=== PATIENT | male | born 1965 | race Caucasian/White ===

== ENCOUNTER 2016-05-09 07:09 | Inpatient (IN) | payer MEDICAID ==
[~2016-05-09] VITALS: Ht 172.7 cm; Wt 64.0 kg
[2016-05-09] MEDS ORDERED: KETOROLAC 30 MG/ML VIAL ONE (07:35)
[2016-05-09] MEDS ORDERED: SODIUM CHLORIDE 0.9% 100 ML IV ONE (08:40)
[2016-05-09] MEDS ORDERED: CEFTRIAXONE 1 GM VIAL ONE (08:40)
[2016-05-09] MEDS ORDERED: SODIUM CHLORIDE 0.9% 1,000 ML ONE ×2 (08:40→11:43)
[2016-05-09] MEDS ORDERED: PHARMACY TO DOSE ANTIBIOTIC IV SCH ×2 (10:45)
[2016-05-09] MEDS ORDERED: CEFTRIAXONE 2 GM in SODIUM CHLORIDE 0.9% 50 ML IV SCH (10:45)
[2016-05-09] MEDS ORDERED: SODIUM CHLORIDE 0.9% 1,000 ML IV ONE ×2 (10:45)
[2016-05-09] MEDS ORDERED: PHARMACY TO DOSE ANTIBIOTIC SUBQ SCH (10:45)
[2016-05-09] MEDS ORDERED: LACT RINGERS 1,000 ML IV ONE (10:45)
[2016-05-09] MEDS ORDERED: NEB-ALBUTEROL 2.5 MG/3 ML INH PRN (10:50)
[2016-05-09] MEDS ORDERED: [UNRECOGNIZED DRUG - REMARK] XX SCH (12:44)
[2016-05-09 12:52] VITALS: BP_SYST 106; BP_SYST 109; RESP 18; TEMP 97.5
[2016-05-09 12:53] VITALS: Ht 172.7 cm; Wt 64.0 kg
[2016-05-09] MEDS: SODIUM CHLORIDE 0.9% 1,000 ML IV SCH (13:13)
[2016-05-09] MEDS: ACETAMINOPHEN 325 MG TAB PO PRN (13:14)
[2016-05-09] MEDS: NICOTINE 21 MG/24 HR TRANSDERM SCH (14:10)
[2016-05-09] MEDS: AZITHROMYCIN 500 MG in SODIUM CHLORIDE 0.9% 250 ML IV SCH (14:10)
[2016-05-09 14:18] VITALS: RESP 18
[2016-05-09] MEDS ORDERED: MORPHINE 4 MG/ML SYR IV ONE (14:30)
[2016-05-09] MEDS ORDERED: CEFTRIAXONE 1 GM in SODIUM CHLORIDE 0.9% 50 ML IV ONE (14:35)
[2016-05-09] MEDS: ENOXAPARIN 40 MG/0.4 ML SYR SUBQ SCH (15:08)
[2016-05-09 15:30] VITALS: BP_SYST 93; RESP 18; TEMP 98.2
[2016-05-09] MEDS: PREDNISONE 50 MG TAB PO SCH (16:56)
[2016-05-09] MEDS ORDERED: MISSING DOSE XX ONE (19:25)
[2016-05-09 19:38] VITALS: BP_SYST 118; RESP 18; TEMP 98.9
[2016-05-09] MEDS: DOCUSATE SOD 100 MG CAP PO SCH (19:59)
[2016-05-09] MEDS: SALINE FLUSH 10 ML FLUSH SCH (20:00)
[2016-05-09 23:22] VITALS: BP_SYST 114; RESP 18; TEMP 98.1
[2016-05-09] MEDS: Ibuprofen 400 MG TAB PO PRN (23:25)
[2016-05-10] MEDS: SODIUM CHLORIDE 0.9% 1,000 ML IV SCH (02:07)
[2016-05-10 04:00] VITALS: BP_SYST 102; RESP 18; TEMP 98.6
[2016-05-10] MEDS: SODIUM CHLORIDE 0.9% FLUSH BAG 500 ML IV SCH (05:43)
[2016-05-10] MEDS: SALINE FLUSH 10 ML FLUSH SCH ×2 (08:00→20:26)
[2016-05-10 08:33] VITALS: BP_SYST 118; RESP 17; TEMP 97.8
[2016-05-10] MEDS ORDERED: MISSING DOSE XX ONE (08:35)
[2016-05-10] MEDS: CEFTRIAXONE 2 GM in SODIUM CHLORIDE 0.9% 50 ML IV SCH (09:45)
[2016-05-10] MEDS: ENOXAPARIN 40 MG/0.4 ML SYR SUBQ SCH (09:45)
[2016-05-10] MEDS: AZITHROMYCIN 500 MG in SODIUM CHLORIDE 0.9% 250 ML IV SCH (09:45)
[2016-05-10] MEDS: PREDNISONE 50 MG TAB PO SCH (09:45)
[2016-05-10] MEDS: NICOTINE 21 MG/24 HR TRANSDERM SCH (09:46)
[2016-05-10] MEDS ORDERED: SODIUM CHLORIDE 0.9% 1,000 ML IV ONE (11:10)
[2016-05-10 11:31] VITALS: BP_SYST 120; RESP 18; TEMP 98.2
[2016-05-10] MEDS: LACT RINGERS 1,000 ML IV SCH ×2 (11:37→23:23)
[2016-05-10] MEDS: MORPHINE 2 MG/ML SYR IV PRN ×2 (12:31→19:23)
[2016-05-10 14:49] VITALS: BP_SYST 123; RESP 18; TEMP 98.5
[2016-05-10] MEDS: Ibuprofen 400 MG TAB PO PRN (20:25)
[2016-05-10] MEDS: DOCUSATE SOD 100 MG CAP PO SCH (20:29)
[2016-05-10 20:36] VITALS: BP_SYST 147; RESP 18; TEMP 99.5
[2016-05-11] VITALS (7 sets, daily range): BP systolic 124–146; RESP 16–20; TEMP 97.3–98.7
[2016-05-11] MEDS: ACETAMINOPHEN 325 MG TAB PO PRN (00:42)
[2016-05-11] MEDS: SODIUM CHLORIDE 0.9% FLUSH BAG 500 ML IV SCH (05:01)
[2016-05-11] MEDS: MORPHINE 2 MG/ML SYR IV PRN ×2 (06:55→20:13)
[2016-05-11] MEDS: Ibuprofen 400 MG TAB PO PRN (06:56)
[2016-05-11] MEDS: LACT RINGERS 1,000 ML IV SCH ×2 (07:20→18:13)
[2016-05-11] MEDS: CEFTRIAXONE 2 GM in SODIUM CHLORIDE 0.9% 50 ML IV SCH (08:59)
[2016-05-11] MEDS: SALINE FLUSH 10 ML FLUSH SCH ×2 (09:00→20:12)
[2016-05-11] MEDS: PREDNISONE 50 MG TAB PO SCH (09:00)
[2016-05-11] MEDS: ENOXAPARIN 40 MG/0.4 ML SYR SUBQ SCH (09:00)
[2016-05-11] MEDS ORDERED: PHARMACY TO DOSE VANCOMYCIN IV SCH (09:35)
[2016-05-11] MEDS ORDERED: VANCOMYCIN 1,250 MG in SODIUM CHLORIDE 0.9% 250 ML IV ONE (10:00)
[2016-05-11] MEDS ORDERED: LACT RINGERS 1,000 ML IV SCH (10:10)
[2016-05-11] MEDS: NICOTINE 21 MG/24 HR TRANSDERM SCH (10:32)
[2016-05-11] MEDS: AZITHROMYCIN 250 MG TAB PO SCH (12:21)
[2016-05-11] MEDS: AZITHROMYCIN 500 MG in SODIUM CHLORIDE 0.9% 250 ML IV SCH (12:22)
[2016-05-11] MEDS: ONDANSETRON 4 MG VIAL IV PUSH PRN (18:15)
[2016-05-11] MEDS: DOCUSATE SOD 100 MG CAP PO SCH (20:16)
[2016-05-11] MEDS: VANCOMYCIN 750 MG in SODIUM CHLORIDE 0.9% 250 ML IV SCH (22:13)
[2016-05-12 03:29] VITALS: BP_SYST 144; RESP 18; TEMP 97.4
[2016-05-12] MEDS: LACT RINGERS 1,000 ML IV SCH ×3 (03:51→23:33)
[2016-05-12] MEDS: MORPHINE 2 MG/ML SYR IV PRN ×3 (03:51→16:24)
[2016-05-12] MEDS: SODIUM CHLORIDE 0.9% FLUSH BAG 500 ML IV SCH (05:40)
[2016-05-12] MEDS ORDERED: MISSING DOSE XX ONE (07:10)
[2016-05-12 08:05] VITALS: BP_SYST 141; RESP 18; TEMP 97.4
[2016-05-12] MEDS: SALINE FLUSH 10 ML FLUSH SCH ×2 (08:25→20:00)
[2016-05-12] MEDS: ENOXAPARIN 40 MG/0.4 ML SYR SUBQ SCH (08:25)
[2016-05-12] MEDS: AZITHROMYCIN 250 MG TAB PO SCH (08:25)
[2016-05-12] MEDS: PREDNISONE 50 MG TAB PO SCH (08:25)
[2016-05-12] MEDS: NICOTINE 21 MG/24 HR TRANSDERM SCH (08:30)
[2016-05-12] MEDS ORDERED: AZITHROMYCIN 250 MG TAB PO SCH (09:00)
[2016-05-12] MEDS: CEFTRIAXONE 1 GM in SODIUM CHLORIDE 0.9% 50 ML IV SCH (11:00)
[2016-05-12] MEDS: VANCOMYCIN 750 MG in SODIUM CHLORIDE 0.9% 250 ML IV SCH ×2 (11:35→23:33)
[2016-05-12] MEDS: Ibuprofen 400 MG TAB PO PRN ×2 (11:35→16:24)
[2016-05-12 12:27] VITALS: BP_SYST 140; RESP 18; TEMP 97.6
[2016-05-12 16:23] VITALS: BP_SYST 138; RESP 18; TEMP 97.4
[2016-05-12 19:33] VITALS: BP_SYST 144; RESP 18; TEMP 98.1
[2016-05-12] MEDS: DOCUSATE SOD 100 MG CAP PO SCH (20:21)
[2016-05-12] MEDS: LACTOBACILLUS ACIDOPH CAP PO SCH (20:21)
[2016-05-12 23:39] VITALS: BP_SYST 122; RESP 18; TEMP 97.3
[2016-05-13] MEDS: MORPHINE 2 MG/ML SYR IV PRN ×2 (01:16→09:08)
[2016-05-13] MEDS: Ibuprofen 400 MG TAB PO PRN ×2 (01:16→09:07)
[2016-05-13 03:54] VITALS: BP_SYST 144; RESP 18; TEMP 97.3
[2016-05-13] MEDS: SODIUM CHLORIDE 0.9% FLUSH BAG 500 ML IV SCH (04:36)
[2016-05-13 08:27] VITALS: BP_SYST 140; RESP 18; TEMP 97.5
[2016-05-13] MEDS: PREDNISONE 50 MG TAB PO SCH (08:37)
[2016-05-13] MEDS: CEFTRIAXONE 1 GM in SODIUM CHLORIDE 0.9% 50 ML IV SCH (08:38)
[2016-05-13] MEDS: LACTOBACILLUS ACIDOPH CAP PO SCH ×2 (08:38→20:00)
[2016-05-13] MEDS: AZITHROMYCIN 250 MG TAB PO SCH (08:38)
[2016-05-13] MEDS: SALINE FLUSH 10 ML FLUSH SCH ×2 (08:38→19:56)
[2016-05-13] MEDS: ENOXAPARIN 40 MG/0.4 ML SYR SUBQ SCH (08:39)
[2016-05-13] MEDS: NICOTINE 21 MG/24 HR TRANSDERM SCH (08:39)
[2016-05-13] MEDS ORDERED: MISSING DOSE XX ONE (08:50)
[2016-05-13] MEDS: VANCOMYCIN 750 MG in SODIUM CHLORIDE 0.9% 250 ML IV SCH ×2 (11:03→22:35)
[2016-05-13] MEDS ORDERED: MORPHINE 2 MG/ML SYR IV PRN ×2 (11:10→17:10)
[2016-05-13 11:23] VITALS: BP_SYST 138; RESP 18; TEMP 97.4
[2016-05-13] MEDS: LACT RINGERS 1,000 ML IV SCH (14:17)
[2016-05-13] MEDS ORDERED: KETOROLAC 15 MG/ML VIAL IV SCH (16:00)
[2016-05-13 16:12] VITALS: BP_SYST 136; RESP 18; TEMP 97.8
[2016-05-13] MEDS: MORPHINE 4 MG/ML SYR IV PRN (18:44)
[2016-05-13] MEDS: DOCUSATE SOD 100 MG CAP PO SCH (20:00)
[2016-05-13] MEDS: Hydrocodone/APAP 10/325 MG TAB PO PRN (20:18)
[2016-05-14] VITALS: BP_SYST 158; RESP 18; TEMP 97.3
[2016-05-14 00:37] VITALS: BP_SYST 158; RESP 18; TEMP 97.1
[2016-05-14] MEDS: MORPHINE 4 MG/ML SYR IV PRN ×2 (00:58→09:12)
[2016-05-14] MEDS: SODIUM CHLORIDE 0.9% FLUSH BAG 500 ML IV SCH (05:47)
[2016-05-14] MEDS: Hydrocodone/APAP 10/325 MG TAB PO PRN ×5 (05:48→23:30)
[2016-05-14 08:21] VITALS: BP_SYST 140; RESP 18; TEMP 97.2
[2016-05-14] MEDS: AZITHROMYCIN 250 MG TAB PO SCH (08:51)
[2016-05-14] MEDS: LACTOBACILLUS ACIDOPH CAP PO SCH ×2 (08:51→20:24)
[2016-05-14] MEDS: NICOTINE 21 MG/24 HR TRANSDERM SCH (08:51)
[2016-05-14] MEDS: SALINE FLUSH 10 ML FLUSH SCH ×2 (08:52→19:51)
[2016-05-14] MEDS: CEFTRIAXONE 1 GM in SODIUM CHLORIDE 0.9% 50 ML IV SCH (08:52)
[2016-05-14] MEDS: PREDNISONE 50 MG TAB PO SCH (08:52)
[2016-05-14] MEDS: ENOXAPARIN 40 MG/0.4 ML SYR SUBQ SCH (08:53)
[2016-05-14] MEDS ORDERED: LINEZOLID 600 MG TAB PO SCH (09:00)
[2016-05-14] MEDS ORDERED: LIDOCAINE 2% 20 ML ONE (10:13)
[2016-05-14] MEDS ORDERED: LIDOCAINE 2% 20 ML SUBQ ONE (11:15)
[2016-05-14] MEDS: DILAUDID 1 MG/ML AMP IV PRN ×3 (11:29→20:25)
[2016-05-14] MEDS: NEB-DORNASE ALFA 5 MG, WATER, STERILE 25 ML in ADMIX SYRINGE 1 EACH I-PLEURAL SCH ×4 (11:57→18:11)
[2016-05-14] MEDS: ALTEPLASE RECOMBINANT 10 MG, SODIUM CHLORIDE 0.9% PF 20 ML in ADMIX SYRINGE 1 EACH I-PLEURAL SCH ×4 (11:57→18:12)
[2016-05-14 12:06] VITALS: BP_SYST 138; RESP 18; TEMP 97.3
[2016-05-14] MEDS: LACT RINGERS 1,000 ML IV SCH (13:11)
[2016-05-14 18:10] VITALS: BP_SYST 140; RESP 18; TEMP 97.4
[2016-05-14] MEDS: DOCUSATE SOD 100 MG CAP PO SCH (20:24)
[2016-05-14] MEDS: LINEZOLID 600 MG TAB PO SCH (20:25)
[2016-05-14 20:36] VITALS: BP_SYST 172; RESP 18
[2016-05-15] VITALS (7 sets, daily range): BP systolic 144–162; RESP 18–20; TEMP 97.7–98.2
[2016-05-15] MEDS: LACT RINGERS 1,000 ML IV SCH (00:57)
[2016-05-15] MEDS: DILAUDID 1 MG/ML AMP IV PRN ×5 (00:58→22:29)
[2016-05-15] MEDS: Hydrocodone/APAP 10/325 MG TAB PO PRN ×2 (03:22→19:19)
[2016-05-15] MEDS: SODIUM CHLORIDE 0.9% FLUSH BAG 500 ML IV SCH (06:00)
[2016-05-15] MEDS: LACTOBACILLUS ACIDOPH CAP PO SCH ×2 (08:24→20:18)
[2016-05-15] MEDS: LINEZOLID 600 MG TAB PO SCH ×2 (08:24→20:18)
[2016-05-15] MEDS: CEFTRIAXONE 1 GM in SODIUM CHLORIDE 0.9% 50 ML IV SCH (08:24)
[2016-05-15] MEDS: SALINE FLUSH 10 ML FLUSH SCH ×2 (08:25→20:19)
[2016-05-15] MEDS: NICOTINE 21 MG/24 HR TRANSDERM SCH (08:25)
[2016-05-15] MEDS: AZITHROMYCIN 250 MG TAB PO SCH (09:43)
[2016-05-15] MEDS: ENOXAPARIN 40 MG/0.4 ML SYR SUBQ SCH (09:44)
[2016-05-15] MEDS: NEB-DORNASE ALFA 5 MG, WATER, STERILE 25 ML in ADMIX SYRINGE 1 EACH I-PLEURAL SCH ×4 (10:05→17:46)
[2016-05-15] MEDS: ALTEPLASE RECOMBINANT 10 MG, SODIUM CHLORIDE 0.9% PF 20 ML in ADMIX SYRINGE 1 EACH I-PLEURAL SCH ×4 (10:06→17:46)
[2016-05-15] MEDS ORDERED: DILAUDID 1 MG/ML AMP IV ONE (10:10)
[2016-05-15] MEDS: SENNA 8.6 MG TAB PO SCH ×2 (13:36→20:18)
[2016-05-15] MEDS: POLYETHYLENE GLYCOL 17 GM PACKET PO SCH (13:36)
[2016-05-15] MEDS: DOCUSATE SOD 100 MG CAP PO SCH ×2 (13:36→20:18)
[2016-05-16] MEDS: DILAUDID 1 MG/ML AMP IV PRN ×4 (03:51→19:29)
[2016-05-16 04:08] VITALS: BP_SYST 180; RESP 18; TEMP 98.5
[2016-05-16] MEDS: SODIUM CHLORIDE 0.9% FLUSH BAG 500 ML IV SCH (06:22)
[2016-05-16 08:21] VITALS: BP_SYST 162; RESP 16; TEMP 98.5
[2016-05-16] MEDS: CEFTRIAXONE 1 GM in SODIUM CHLORIDE 0.9% 50 ML IV SCH (08:50)
[2016-05-16] MEDS: SALINE FLUSH 10 ML FLUSH SCH ×2 (08:50→19:57)
[2016-05-16] MEDS: NICOTINE 21 MG/24 HR TRANSDERM SCH (08:51)
[2016-05-16] MEDS: ENOXAPARIN 40 MG/0.4 ML SYR SUBQ SCH (08:51)
[2016-05-16] MEDS: AZITHROMYCIN 250 MG TAB PO SCH (08:52)
[2016-05-16] MEDS: SENNA 8.6 MG TAB PO SCH ×2 (08:52→21:24)
[2016-05-16] MEDS: LACTOBACILLUS ACIDOPH CAP PO SCH ×2 (08:53→21:24)
[2016-05-16] MEDS: LINEZOLID 600 MG TAB PO SCH ×2 (08:53→21:26)
[2016-05-16] MEDS: DOCUSATE SOD 100 MG CAP PO SCH ×2 (08:53→21:24)
[2016-05-16] MEDS: POLYETHYLENE GLYCOL 17 GM PACKET PO SCH (08:53)
[2016-05-16] MEDS: ONDANSETRON 4 MG VIAL IV PUSH PRN ×2 (08:58→19:56)
[2016-05-16] MEDS: ALTEPLASE RECOMBINANT 10 MG, SODIUM CHLORIDE 0.9% PF 20 ML in ADMIX SYRINGE 1 EACH I-PLEURAL SCH ×4 (10:20→17:23)
[2016-05-16] MEDS: NEB-DORNASE ALFA 5 MG, WATER, STERILE 25 ML in ADMIX SYRINGE 1 EACH I-PLEURAL SCH ×4 (10:21→17:23)
[2016-05-16 12:19] VITALS: BP_SYST 170; RESP 18; TEMP 98.2
[2016-05-16] MEDS ORDERED: BISACODYL 10 MG SUPP RECTAL PRN (12:20)
[2016-05-16 15:56] VITALS: BP_SYST 158; RESP 21; TEMP 98.7
[2016-05-16] MEDS: Hydrocodone/APAP 10/325 MG TAB PO PRN ×2 (16:05→21:26)
[2016-05-16] MEDS: MAG HYDROX 30 ML UDC PO SCH (20:00)
[2016-05-16 20:51] VITALS: TEMP 98.7
[2016-05-16 23:54] VITALS: BP_SYST 162; RESP 20; TEMP 98.6
[2016-05-17] MEDS: PROMETHAZINE 25 MG/ML VIAL IV PRN ×2 (00:39→05:51)
[2016-05-17 03:41] VITALS: BP_SYST 160; RESP 18
[2016-05-17] MEDS: DILAUDID 1 MG/ML AMP IV PRN ×4 (05:53→21:58)
[2016-05-17] MEDS: SODIUM CHLORIDE 0.9% FLUSH BAG 500 ML IV SCH (06:54)
[2016-05-17] MEDS: SALINE FLUSH 10 ML FLUSH SCH ×2 (07:57→20:56)
[2016-05-17 07:58] VITALS: BP_SYST 158; RESP 20; TEMP 97.2
[2016-05-17] MEDS: NEB-DORNASE ALFA 5 MG, WATER, STERILE 25 ML in ADMIX SYRINGE 1 EACH I-PLEURAL SCH ×2 (08:00)
[2016-05-17] MEDS: ALTEPLASE RECOMBINANT 10 MG, SODIUM CHLORIDE 0.9% PF 20 ML in ADMIX SYRINGE 1 EACH I-PLEURAL SCH ×2 (08:00)
[2016-05-17] MEDS: MAG HYDROX 30 ML UDC PO SCH ×2 (08:00→20:00)
[2016-05-17] MEDS: POLYETHYLENE GLYCOL 17 GM PACKET PO SCH (08:01)
[2016-05-17] MEDS: SENNA 8.6 MG TAB PO SCH ×2 (08:02→20:55)
[2016-05-17] MEDS: NICOTINE 21 MG/24 HR TRANSDERM SCH (09:00)
[2016-05-17] MEDS: CEFTRIAXONE 1 GM in SODIUM CHLORIDE 0.9% 50 ML IV SCH (09:05)
[2016-05-17] MEDS: DOCUSATE SOD 100 MG CAP PO SCH ×2 (09:05→20:55)
[2016-05-17] MEDS: LACTOBACILLUS ACIDOPH CAP PO SCH ×2 (09:05→20:55)
[2016-05-17] MEDS: LINEZOLID 600 MG TAB PO SCH ×2 (09:05→20:55)
[2016-05-17] MEDS: ENOXAPARIN 40 MG/0.4 ML SYR SUBQ SCH (09:06)
[2016-05-17] MEDS: AZITHROMYCIN 250 MG TAB PO SCH (10:25)
[2016-05-17 11:59] VITALS: BP_SYST 160; RESP 20; TEMP 98.2
[2016-05-17 16:07] VITALS: BP_SYST 150; RESP 20; TEMP 97.8
[2016-05-17] MEDS: Hydrocodone/APAP 10/325 MG TAB PO PRN (17:59)
[2016-05-17 19:00] VITALS: BP_SYST 162; RESP 18; TEMP 97.9
[2016-05-17 23:19] VITALS: BP_SYST 136; RESP 18; TEMP 98.4
[2016-05-18] MEDS: DILAUDID 1 MG/ML AMP IV PRN ×4 (05:05→18:23)
[2016-05-18] MEDS: SODIUM CHLORIDE 0.9% FLUSH BAG 500 ML IV SCH (05:06)
[2016-05-18 06:29] VITALS: BP_SYST 166; RESP 18; TEMP 98
[2016-05-18] MEDS: MAG HYDROX 30 ML UDC PO SCH ×2 (08:00→20:00)
[2016-05-18 08:07] VITALS: BP_SYST 158; RESP 19; TEMP 98.5
[2016-05-18] MEDS: POLYETHYLENE GLYCOL 17 GM PACKET PO SCH (09:00)
[2016-05-18] MEDS: SENNA 8.6 MG TAB PO SCH ×2 (09:00→21:00)
[2016-05-18] MEDS: DOCUSATE SOD 100 MG CAP PO SCH ×2 (09:00→21:03)
[2016-05-18] MEDS: NICOTINE 21 MG/24 HR TRANSDERM SCH (09:00)
[2016-05-18] MEDS: CEFTRIAXONE 1 GM in SODIUM CHLORIDE 0.9% 50 ML IV SCH (09:20)
[2016-05-18] MEDS: SALINE FLUSH 10 ML FLUSH SCH ×2 (09:20→21:01)
[2016-05-18] MEDS: LINEZOLID 600 MG TAB PO SCH ×2 (09:21→21:00)
[2016-05-18] MEDS: AZITHROMYCIN 250 MG TAB PO SCH (09:21)
[2016-05-18] MEDS: LACTOBACILLUS ACIDOPH CAP PO SCH ×2 (09:21→20:59)
[2016-05-18] MEDS: PROMETHAZINE 25 MG/ML VIAL IV PRN ×3 (09:27→18:23)
[2016-05-18] MEDS: ENOXAPARIN 40 MG/0.4 ML SYR SUBQ SCH (09:47)
[2016-05-18] MEDS: amLODIPine 10 MG TAB PO SCH (10:35)
[2016-05-18 10:50] VITALS: BP_SYST 158; RESP 19; TEMP 98.5
[2016-05-18 14:12] VITALS: BP_SYST 154; RESP 12; TEMP 98.2
[2016-05-18] MEDS: Hydrocodone/APAP 10/325 MG TAB PO PRN ×2 (14:56→20:59)
[2016-05-18 15:50] VITALS: BP_SYST 138; RESP 20; TEMP 98
[2016-05-18 20:45] VITALS: BP_SYST 152; RESP 20; TEMP 98.3
[2016-05-19] VITALS (7 sets, daily range): BP systolic 140–162; RESP 16–22; TEMP 97–98.9
[2016-05-19] MEDS: DILAUDID 1 MG/ML AMP IV PRN ×5 (00:48→20:51)
[2016-05-19] MEDS: PROMETHAZINE 25 MG/ML VIAL IV PRN ×5 (00:49→20:51)
[2016-05-19] MEDS: SODIUM CHLORIDE 0.9% FLUSH BAG 500 ML IV SCH (06:19)
[2016-05-19] MEDS ORDERED: AZITHROMYCIN 250 MG TAB PO SCH (09:00)
[2016-05-19] MEDS: SALINE FLUSH 10 ML FLUSH SCH ×2 (09:59→20:52)
[2016-05-19] MEDS: CEFTRIAXONE 1 GM in SODIUM CHLORIDE 0.9% 50 ML IV SCH (10:00)
[2016-05-19] MEDS: MAG HYDROX 30 ML UDC PO SCH ×2 (10:00→20:00)
[2016-05-19] MEDS: DOCUSATE SOD 100 MG CAP PO SCH ×2 (10:01→20:51)
[2016-05-19] MEDS: SENNA 8.6 MG TAB PO SCH ×2 (10:01→20:52)
[2016-05-19] MEDS: POLYETHYLENE GLYCOL 17 GM PACKET PO SCH (10:01)
[2016-05-19] MEDS: LACTOBACILLUS ACIDOPH CAP PO SCH ×2 (10:01→20:50)
[2016-05-19] MEDS: amLODIPine 10 MG TAB PO SCH (10:02)
[2016-05-19] MEDS: Hydrocodone/APAP 10/325 MG TAB PO PRN ×2 (10:02→14:23)
[2016-05-19] MEDS: LINEZOLID 600 MG TAB PO SCH ×2 (10:02→20:50)
[2016-05-19] MEDS: ENOXAPARIN 40 MG/0.4 ML SYR SUBQ SCH (10:03)
[2016-05-19] MEDS: NICOTINE 21 MG/24 HR TRANSDERM SCH (10:03)
[2016-05-19] MEDS: SALINE FLUSH 10 ML FLUSH PRN (16:20)
[2016-05-20] MEDS: DILAUDID 1 MG/ML AMP IV PRN ×5 (03:05→20:40)
[2016-05-20] MEDS: PROMETHAZINE 25 MG/ML VIAL IV PRN ×5 (03:05→20:41)
[2016-05-20 03:15] VITALS: BP_SYST 162; RESP 20; TEMP 98.7
[2016-05-20] MEDS: SODIUM CHLORIDE 0.9% FLUSH BAG 500 ML IV SCH (06:27)
[2016-05-20] MEDS: SALINE FLUSH 10 ML FLUSH PRN ×3 (06:28→16:28)
[2016-05-20 08:11] VITALS: BP_SYST 138; RESP 20; TEMP 97.6
[2016-05-20] MEDS: NICOTINE 21 MG/24 HR TRANSDERM SCH (09:00)
[2016-05-20] MEDS: DOCUSATE SOD 100 MG CAP PO SCH ×2 (09:00→20:41)
[2016-05-20] MEDS: POLYETHYLENE GLYCOL 17 GM PACKET PO SCH (09:00)
[2016-05-20] MEDS: MAG HYDROX 30 ML UDC PO SCH ×2 (09:15→20:00)
[2016-05-20] MEDS: CEFTRIAXONE 1 GM in SODIUM CHLORIDE 0.9% 50 ML IV SCH (09:15)
[2016-05-20] MEDS: SALINE FLUSH 10 ML FLUSH SCH ×2 (09:16→20:40)
[2016-05-20] MEDS: LACTOBACILLUS ACIDOPH CAP PO SCH ×2 (09:17→20:41)
[2016-05-20] MEDS: Hydrocodone/APAP 10/325 MG TAB PO PRN ×2 (09:17→22:55)
[2016-05-20] MEDS: SENNA 8.6 MG TAB PO SCH ×2 (09:17→20:52)
[2016-05-20] MEDS: amLODIPine 10 MG TAB PO SCH (09:17)
[2016-05-20] MEDS: ENOXAPARIN 40 MG/0.4 ML SYR SUBQ SCH (09:18)
[2016-05-20] MEDS: LINEZOLID 600 MG TAB PO SCH ×2 (09:18→20:41)
[2016-05-20 11:54] VITALS: BP_SYST 142; RESP 18; TEMP 98
[2016-05-20 15:51] VITALS: BP_SYST 152; RESP 22; TEMP 97.2
[2016-05-20 20:21] VITALS: BP_SYST 144; RESP 20; TEMP 98.7
[2016-05-21] VITALS (8 sets, daily range): BP systolic 142–170; RESP 20–22; TEMP 97.3–98.4
[2016-05-21] MEDS: SALINE FLUSH 10 ML FLUSH PRN (00:44)
[2016-05-21] MEDS: PROMETHAZINE 25 MG/ML VIAL IV PRN ×4 (00:44→14:51)
[2016-05-21] MEDS: DILAUDID 1 MG/ML AMP IV PRN ×5 (00:44→18:54)
[2016-05-21] MEDS: SODIUM CHLORIDE 0.9% FLUSH BAG 500 ML IV SCH (05:18)
[2016-05-21] MEDS: SALINE FLUSH 10 ML FLUSH SCH (05:18)
[2016-05-21] MEDS: DOCUSATE SOD 100 MG CAP PO SCH ×2 (09:00→21:36)
[2016-05-21] MEDS: ENOXAPARIN 40 MG/0.4 ML SYR SUBQ SCH (09:00)
[2016-05-21] MEDS: NICOTINE 21 MG/24 HR TRANSDERM SCH (09:00)
[2016-05-21] MEDS: SENNA 8.6 MG TAB PO SCH ×2 (09:00→21:00)
[2016-05-21] MEDS: MAG HYDROX 30 ML UDC PO SCH ×2 (09:29→20:00)
[2016-05-21] MEDS: CEFTRIAXONE 1 GM in SODIUM CHLORIDE 0.9% 50 ML IV SCH (09:32)
[2016-05-21] MEDS: LINEZOLID 600 MG TAB PO SCH ×2 (09:32→21:36)
[2016-05-21] MEDS: POLYETHYLENE GLYCOL 17 GM PACKET PO SCH (09:32)
[2016-05-21] MEDS: AZITHROMYCIN 250 MG TAB PO SCH (09:32)
[2016-05-21] MEDS: amLODIPine 10 MG TAB PO SCH (09:32)
[2016-05-21] MEDS: LACTOBACILLUS ACIDOPH CAP PO SCH ×2 (09:32→21:36)
[2016-05-21] MEDS: HCTZ 25 MG TAB PO SCH (16:46)
[2016-05-21] MEDS: Hydrocodone/APAP 10/325 MG TAB PO PRN (22:31)
[2016-05-22] MEDS: DILAUDID 1 MG/ML AMP IV PRN ×2 (01:12→06:33)
[2016-05-22] MEDS: SALINE FLUSH 10 ML FLUSH SCH ×2 (01:13→06:32)
[2016-05-22 03:05] VITALS: BP_SYST 134; RESP 18; TEMP 97.9
[2016-05-22] MEDS: SODIUM CHLORIDE 0.9% FLUSH BAG 500 ML IV SCH (06:32)
[2016-05-22 07:44] VITALS: BP_SYST 142; RESP 16; TEMP 97.2
[2016-05-22] MEDS: MAG HYDROX 30 ML UDC PO SCH (08:00)
[2016-05-22] MEDS: Hydrocodone/APAP 10/325 MG TAB PO PRN (08:55)
[2016-05-22] MEDS: AZITHROMYCIN 250 MG TAB PO SCH (08:56)
[2016-05-22] MEDS: HCTZ 25 MG TAB PO SCH (08:56)
[2016-05-22] MEDS: LACTOBACILLUS ACIDOPH CAP PO SCH (08:56)
[2016-05-22] MEDS: amLODIPine 10 MG TAB PO SCH (08:56)
[2016-05-22] MEDS: LINEZOLID 600 MG TAB PO SCH (08:56)
[2016-05-22] MEDS: DOCUSATE SOD 100 MG CAP PO SCH (08:56)
[2016-05-22] MEDS: POLYETHYLENE GLYCOL 17 GM PACKET PO SCH (08:57)
[2016-05-22] MEDS: SENNA 8.6 MG TAB PO SCH (08:57)
[2016-05-22] MEDS: ENOXAPARIN 40 MG/0.4 ML SYR SUBQ SCH (08:57)
[2016-05-22] MEDS: NICOTINE 21 MG/24 HR TRANSDERM SCH (08:59)
[2016-05-22 12:01] VITALS: BP_SYST 138; RESP 16; TEMP 97.3
[2016-05-22 12:51] VITALS: BP_SYST 138; RESP 16; TEMP 97.3
== END 2016-05-22 13:11 | disposition home or self-care (01) | DRG 871 ==
LOC: ENRESERVDT → ENRESERVTM → ER 07:09 → EMR 10:44 → ENPENDDIS 10:44 → PCU 12:06 → PCU2 05-11 01:27 → PCU 05-11 19:05 → 3NT 05-18 13:21
PROVIDERS: ADMIT Internal Medicine; ATTEND Internal Medicine
PROC: 0W9B30Z Drainage of Left Pleural Cavity with Drainage Device, Percutaneous Approach (ICD-10-PCS; principal; 2016-05-14)
PROC: 0W993ZX Drainage of Right Pleural Cavity, Percutaneous Approach, Diagnostic (ICD-10-PCS; 2016-05-15)
PROC: 02HV33Z Insertion of Infusion Device into Superior Vena Cava, Percutaneous Approach (ICD-10-PCS; 2016-05-17)
DX: A41.02 Sepsis due to Methicillin resistant Staphylococcus aureus (principal); A40.3 Sepsis due to Streptococcus pneumoniae; J96.01 Acute respiratory failure with hypoxia; J15.212 Pneumonia due to Methicillin resistant Staphylococcus aureus; J90 Pleural effusion, not elsewhere classified; E87.2 Acidosis; J13 Pneumonia due to Streptococcus pneumoniae; N17.9 Acute kidney failure, unspecified; R65.20 Severe sepsis without septic shock; F17.210 Nicotine dependence, cigarettes, uncomplicated; Z87.898 Personal history of other specified conditions; I10 Essential (primary) hypertension; K59.00 Constipation, unspecified; R00.1 Bradycardia, unspecified; Z71.6 Tobacco abuse counseling
CPT/HCPCS: 36415; 36569; 71010; 71020; 71250; 76937; 80048; 80053; 80061; 80202; 81003; 82150; 82465; 82945; 83605; 83615; 83690; 83735; 83986; 84155; 85007; 85025; 85027; 86701; 87040; 87071; 87077; 87102; 87116; 87186; 87205; 87206; 87278; 87299; 87804; 88108; 89051; 93005; 93306; 94640; 94664; 94799; 96361; 96365; 96375; 99223; 99232; 99233; 99238